=== PATIENT | female | born 1980 | race Caucasian/White ===

== ENCOUNTER 2021-04-02 06:02 | Day surgery (SDC) | payer OTHER ==
[2021-03-28 17:19] VITALS: BMI 23.3
[2021-04-02] MEDS ORDERED: DEXAMETHASONE SOD PHOSPHATE 4 MG/1 ML VIAL ONE (07:27)
[2021-04-02] MEDS ORDERED: ceFAZolin SODIUM 1 GM VIAL ONE ×2 (07:27→07:48)
[2021-04-02] MEDS ORDERED: LIDOCAINE HCL 2% JELLY (5 ML/TUBE) ONE (07:27)
[2021-04-02] MEDS ORDERED: KETOROLAC TROMETHAMINE 30 MG/1 ML VIAL ONE (07:27)
[2021-04-02] MEDS ORDERED: ONDANSETRON 4 MG/2 ML VIAL ONE ×2 (07:27→10:40)
[2021-04-02] MEDS ORDERED: fentaNYL CITRATE 250 MCG/5 ML VIAL ONE (07:28)
[2021-04-02] MEDS ORDERED: SUCCINYLCHOLINE CHLORIDE 200 MG/10 ML SYRINGE ONE (07:28)
[2021-04-02] MEDS ORDERED: MIDAZOLAM HCL 2 MG/2 ML SINGLE DOSE VIAL ONE (07:28)
[2021-04-02] MEDS ORDERED: PROPOFOL 20 ML ONE ×4 (07:28)
[2021-04-02] MEDS ORDERED: GENTAMICIN SO4 80 MG/2 ML VIAL ONE (07:48)
[2021-04-02] MEDS ORDERED: ONDANSETRON 4 MG/2 ML VIAL IVPUSH PRN (10:41)
[2021-04-02] MEDS ORDERED: oxyCODONE HCL 5 MG TABLET PO PRN ×2 (10:41)
[2021-04-02] MEDS ORDERED: PROMETHAZINE HCL 25 MG/1 ML VIAL IVPUSH PRN (10:41)
[2021-04-02] MEDS ORDERED: oxyCODONE HCL 5 MG TABLET ONE (11:44)
[2021-04-02] MEDS ORDERED: oxyCODONE HCL 5 MG TABLET PO ONE (11:45)
[2021-04-02 11:52] VITALS: TEMP 97.9
[2021-04-02 12:24] VITALS: BP 120/74; PULSE 80
== END 2021-04-02 12:24 | disposition home or self-care (01) ==
LOC: FASU 06:02
PROVIDERS: ATTEND Surgery Plastic and Reconstructive Surgery
PROC: 0HPT0JZ Removal of Synthetic Substitute from Right Breast, Open Approach (ICD-10-PCS; 2021-04-02)
PROC: 0HUU0JZ Supplement Left Breast with Synthetic Substitute, Open Approach (ICD-10-PCS; 2021-04-02)
PROC: 0HUT0JZ Supplement Right Breast with Synthetic Substitute, Open Approach (ICD-10-PCS; 2021-04-02)
PROC: 0JQ80ZZ Repair Abdomen Subcutaneous Tissue and Fascia, Open Approach (ICD-10-PCS; 2021-04-02)
PROC: 0HB7XZZ Excision of Abdomen Skin, External Approach (ICD-10-PCS; 2021-04-02)
PROC: 0HQV0ZZ Repair Bilateral Breast, Open Approach (ICD-10-PCS; principal; 2021-04-02 08:28)
PROC: 0HPU0JZ Removal of Synthetic Substitute from Left Breast, Open Approach (ICD-10-PCS; 2021-04-02 08:28)
DX: L91.0 Hypertrophic scar (principal); Z98.890 Other specified postprocedural states; N64.81 Ptosis of breast; T85.44XA Capsular contracture of breast implant, initial encounter; Y82.8 Other medical devices associated with adverse incidents; Y92.9 Unspecified place or not applicable
CPT/HCPCS: 11406; 12035; 19316; 19342; 19371; L8600; 81025; 94760